=== PATIENT | female | born 1985 | race Caucasian/White ===

== ENCOUNTER → 2021-02-12 09:23 | Outpatient (BNVA) | payer MEDICAID, SELFPAY | PROVIDERS: Visit Provider Obstetrics & Gynecology ==

== ENCOUNTER 2021-05-13 12:42 | Outpatient (REF) | payer MEDICAID, SELFPAY ==
[2021-05-13 14:51] LABS: COVID-19 Test Negative (Negative)
== END 2021-05-13 12:43 | disposition home or self-care (01) ==
LOC: HO.LAB 12:42
PROVIDERS: Visit Provider Internal Medicine
DX: Z20.822 Contact with and (suspected) exposure to COVID-19 (principal)
CPT/HCPCS: 36415; 87635; C9803

== ENCOUNTER 2021-06-25 10:46 | Emergency (ER) | payer MEDICAID, SELFPAY ==
[2021-06-25 10:54] VITALS: BP 132/78; PULSE 79; RESP 20; TEMP 36.7; O2SAT 97; BMI 35.3
--- NOTE | 2021-06-25 11:24 | ED.GENADULT ---
HPI - General Adult General Chief complaint: General Medical Stated complaint: sore throat Time Seen by Provider: 06/25/21 11:24 Source: patient and other (Ángela ANN observer used for kittitian)) Mode of arrival: ambulatory Limitations: language barrier History of Present Illness HPI narrative: 36 yo female pmhx anxiety and athma presents to the ED with anterior neck pain and sore throat X3 days. She states this pain started three days ago and it has been progressively worsening. Before having this neck pain she noted she had a little of a runny nose and post nasal drip. She states she continues to have the runny nose and she states that the post nasal drip has resolved. She has throat discomfort, but not pain she states. She denies fevers, chills, SOB, CP. abdominal pain, MTZ, ear ache, nausea, vomiting. She is not a smoker Onset (ago): day(s) (3) Location: neck (anterior ) Severity: mild Quality: aching Related Data Previous Rx's Medication Instructions Recorded amoxicillin 500 mg capsule 500 mg PO BID 10 Days #20 cap 06/25/21 triamcinolone acetonide 55 mcg 2 spray INTRANASAL DAILY #16.9 ml 06/25/21 nasal spray aerosol (Nasacort) Allergies Allergy/AdvReac Type Severity Reaction Status Date / Time No Known Allergies Allergy Verified 02/12/21 09:34 [No Known Allergies*] Review of Systems Review of Systems: Yes all other systems are reviewed and are negative Constitutional: Constitutional: Reports no additional constitutional complaints, Denies body ache(s), Denies chills, Denies fever(s), Denies headache(s) and Denies weakness Eyes: Eyes: Reports no additional eye complaints and Denies change in vision ENT: Reports system reviewed and no additional complaints, except as documented, Denies dizziness, Denies headache(s), Denies nasal congestion, Denies nasal discharge, Reports neck pain, Reports post nasal drip and Reports sore throat Cardiovascular: Cardiovascular: Reports no additional cardiovascular complaints, Denies chest pain, Denies leg edema, Denies dyspnea and Reports other (anterior neck pain ) Respiratory: Respiratory: Reports no additional respiratory complaints, Denies cough and Denies dyspnea Gastrointestinal: Gastrointestinal: Reports no additional gastrointestinal complaints, Denies abdominal pain, Denies diarrhea, Denies nausea and Denies vomiting Genitourinary: Genitourinary: Reports no additional female genitourinary complaints and Denies urinary incontinence Musculoskeletal: Musculoskeletal: Reports no additional musculoskeletal complaints, Denies back pain, Denies arthralgias, Denies joint swelling, Reports neck pain, Denies numbness and Denies tingling Integumentary/Breasts: Skin/Breast: Reports system reviewed and no additional complaints, except as docu and Denies rash Neurologic: Reports system reviewed and no additional complaints, except as documented, Denies Abnormal speech present, Denies dizziness, Denies headache(s), Denies numbness, Denies tingling and Denies weakness [facility] Past Medical History Attestation statement: The following information was validated with the patient. Source: old records reviewed and nursing notes reviewed Medical History Anxiety Asthma Cholecystectomy planned Colitis Gastritis Panic attack Surgical History History of appendectomy Hx of section Family History Family History Mother Ovarian ca Social History Social History Alcohol intake: never Patient Tobacco Use Status: Never used Tobacco Advance Directives: No Advance Directives Information Provided: Yes Patient : No Physical Exam Vital Signs: Vital Signs: Last Vital Signs Temp 98.1 F 06/25/21 10:54 Pulse 79 06/25/21 10:54 Resp 20 06/25/21 10:54 BP 132/78 06/25/21 10:54 Pulse Ox 97 06/25/21 10:54 Body Mass Index 35.3 Const: General: cooperative, healthy appearing, comfortable and no acute distress Orientation/consciousness: patient oriented x3 Limitations: no limitations HENMT: Head: Yes normal to inspection Ears: hearing grossly normal bilaterally General nose exam: Normal external nose present Face and sinus: Yes normal facial exam Mouth: Normal oral and palatal mucosa present Throat: Yes posterior oropharynx normal Eyes: General: appearance normal, both eyes and all related structures Pupils: Equal, round and reactive pupils present Neck: Neck: Yes normal visual inspection Thyroid: tender and other (?small nodule noted to palpation right upper thyroid lobe. ) Chest: Chest palpation & inspection: normal inspection of the chest Resp: Effort & Inspection: normal respiratory effort Auscultation: clear to auscultation bilaterally Cardio: Rate: regular rate Rhythm: regular rhythm Peripheral pulses: Peripheral pulses 2+ throughout GI: Inspection: Yes normal to inspection Palpation (GI): Soft to palpation and nontender Auscultation: normal bowel sounds Back/Spine/Pelvis: Thoracic/Lumbar Spine: thoracic and lumbar spine normal to inspection Skin: General skin exam: no rashes or lesions noted Neuro: General: patient oriented x3, no focal motor deficits and normal sensation to monofilament Cranial nerves: Yes Equal, round and reactive pupils present Cognition (Neuro): normal cognition Speech: No Abnormal speech present Gait exam (Neuro): Normal gait present Motor exam (neuro): 5/5 motor strength present throughout Extrem: General: Yes normal to inspection Course Course Course Narrative: 36 yo F pmhx asthma and anxiety presents to the emergency department with 3 days of anterior neck pain, postnasal drip, rhinorrhea. Upon physical examination there may be a small solitary nodule on the right upper lobe of the thyroid. She reports pain to palpation over the thyroid. She has full range of motion of the neck. She is controlling her secretions well. There is no exudates, or erythema in bilateral tonsils or tonsillar pillars. Tympanic membrane has a good cone of light, all landmarks are visible. Reevaluation(s) Reevaluation #1: COVID negative, strep positive, will D/C home with amoxicillin and nasacort for allergies. She is safe for DC home with PCP follow up. Medical Decision Making MDM Narrative Medical decision making narrative: Based off of physical exam findings, and history a COVID swab will be ordered as well as a strep test. This may be a small a thyroid nodule that is causing the patient discomfort. No concern for infection at this time, there is no overlying calor, or erythema. Vital signs are normal, she is afebrile. She is controlling secretions well. These may also be seasonal allergies, as the patient reports postnasal drip, that is been worsening over the past 3 days. HEENT patient reports throat discomfort, not pain. Medical Records Medical records reviewed: Yes I reviewed the patient's medical records. Lab Data Lab results reviewed: Yes I reviewed the patient's lab results. Labs: Lab Results 06/25/21 06/25/21 Range/Units 11:37 11:37 COVID-19 (ANAND) Negative (Negative) COVID-19 Clin Com See Note S. pyogenes GrpA TREVOR Positive A (Negative) Discharge Plan Discharge Clinical Impression: PND (post-nasal drip), Anterior neck pain, Strep pharyngitis Patient Disposition: Home, Self-Care Instructions: Strep Throat (ED), Thyroid Nodules (ED), Allergies (ED) Additional Instructions: There may be a small thyroid nodule on the right upper thyroid lobe, follow up with your PCP they may do an ultrasound if they think it is necessary. You tested positive for strep throat a bacterial infection you were prescribed amoxicillin an antibiotic. Make sure to take it completely, do not skip any doses. Drink plenty of fluids Follow up with your PCP this week Return to the emergency department with new or worsening symptoms Puede lisha un nayely?o n?dulo tiroideo en el l?bulo tiroideo superior derecho, marsha un seguimiento con denton PCP, pueden hacer josiah ecograf?a si lo creen necesario. Rene positivo para faringitis estreptoc?cica, josiah infecci?n bacteriana que le recetaron amoxicilina, un antibi?marley. Aseg?rese de tomarlo por completo, no se salte ninguna dosis. Beber mucho l?quido Negativa para COVID-19 Marsha un seguimiento con denton PCP esta semana Regrese al departamento de emergencias con s?ntomas nuevos o que empeoran Prescriptions: New triamcinolone acetonide [Nasacort] 55 mcg aerosol,spray 2 spray intranasal DAILY Qty: 16.9 RF: 0 amoxicillin 500 mg capsule 500 mg PO BID 10 Days Qty: 20 RF: 0 Stand Alone Forms: Work/School Release Interventions: ED Discharge Assessment Last Done: 06/25/21 12:41 Discharge Date/Time: 06/25/21 12:42 Print Language: Sami
[2021-06-25 11:51] LABS: IDNOW Serial# 9DD0AD1C; Strep A Nucleic Acid Positive (Negative)
[2021-06-25 12:04] LABS: COVID-19 Test Negative (Negative)
== END 2021-06-25 12:42 | disposition home or self-care (01) ==
PROVIDERS: Nurse Practitioner Family; Emergency Provider Emergency Medicine Emergency Medical Services
DX: J02.0 Streptococcal pharyngitis (principal); R09.82 Postnasal drip; M54.2 Cervicalgia; J45.909 Unspecified asthma, uncomplicated; Z20.822 Contact with and (suspected) exposure to COVID-19
CPT/HCPCS: 36415; 87635; 87651; 99283

== ENCOUNTER 2021-07-02 13:10 | Outpatient (REF) | payer MEDICAID, SELFPAY ==
--- NOTE | ~2021-07-02 | XR_ITS ---
EXAMINATION: XR LUMBOSACRAL SPINE CLINICAL INFORMATION: Lower back pain. COMPARISON: None. TECHNIQUE: 3 views of the lumbosacral spine. FINDINGS: The lumbar lordosis is maintained. No acute fracture or subluxation. No loss of vertebral body height. Loss of intervertebral disc height with endplate sclerosis and osteophytes at L4-L5. No lytic or blastic osseous lesion. Right upper quadrant surgical clips. XR/XR lumbar spine 2-3V IMPRESSION: Sfszmyob-ct-hqzpbe degenerative disc disease at L4-L5.
== END 2021-07-02 13:11 | disposition home or self-care (01) ==
LOC: HO.XRAY 13:10
PROVIDERS: Absent Provider Nurse Practitioner; PCP Nurse Practitioner; Visit Provider Emergency Medicine
DX: M54.50 Low back pain, unspecified (principal)
CPT/HCPCS: 72100

== ENCOUNTER 2021-09-01 08:01 | Outpatient (REF) | payer MEDICAID, SELFPAY ==
--- NOTE | ~2021-09-01 | US_ITS ---
EXAMINATION: US THYROID CLINICAL INFORMATION: Nontoxic thyroid nodule. COMPARISON: None TECHNIQUE: Linear transducer grayscale and color Doppler examination with attention to the region of the thyroid. FINDINGS: SIZE: Measurements of the thyroid lobes and nodules are given in sagittal, anteroposterior and transverse dimensions respectively. Right Thyroid Lobe: 4.08 x 1.54 x 1.57 cm, volume 5.14 mL. Parenchyma: The gland echotexture is homogeneous. Thyroid vascularity is normal. Left Thyroid Lobe: 5.73 x 1.32 x 1.26 cm, volume 5.01 mL. Parenchyma: The gland echotexture is homogeneous. Thyroid vascularity is normal. Isthmus: 0.37 cm in maximum AP dimension. Estimated total number of nodules greater than or equal to 1 cm: 2. 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 Location: Right inferior. Size: 1.20 x 0.92 x 0.96 cm, volume 0.56 mL. Nodule characteristics: Composition: Mixed cystic and solid (1). Echogenicity: Hypoechoic (2). Shape: Not taller than wide (0). Margins: Smooth (0). Echogenic Foci: None (0). ACR TI-RADS total points: 3 ACR TI-RADS category: 3 2. Location: Left inferior. Size: 1.51 x 0.93 x 0.82 cm, volume 0.61 mL. Nodule characteristics: Composition: Solid (2). Echogenicity: Hypoechoic (2). Shape: Not taller than wide (0). Margins: Smooth (0). Echogenic Foci: None (0). ACR TI-RADS total points: 4 ACR TI-RADS category: 4 NODES: No lymphadenopathy is seen in the tissue surrounding the thyroid gland. US/US thyroid IMPRESSION: Normal-sized thyroid gland which demonstrates bilateral nodules. FNA recommended for 1.5 cm left TR 4 nodule. ACR TI-RADS RECOMMENDATION REFERENCE: Ultrasound-guided fine-needle aspiration, followup ultrasound, no further follow up. * TR3 (3 points): FNA if more than or equal to 2.5 cm in maximum dimension, followup ultrasound in 1, 3 and 5 years if 1.5 to 2.4 cm in maximum dimension. * TR4 (4-6 points): FNA if more than or equal to 1.5 cm in maximum dimension, followup ultrasound in 1, 2, 3 and 5 years if 1 to 1.4 cm in maximum dimension. * TR3, TR4 or TR5 nodules that are below the size threshold for follow up receive no follow up.
== END 2021-09-01 08:02 | disposition home or self-care (01) ==
LOC: HO.US 08:01
PROVIDERS: Visit Provider Nurse Practitioner
DX: E04.1 Nontoxic single thyroid nodule (principal)
CPT/HCPCS: 76536

== ENCOUNTER 2021-10-06 07:58 | Outpatient (REF) | payer MEDICAID, SELFPAY ==
--- NOTE | ~2021-10-06 | US_ITS ---
PROCEDURE: ULTRASOUND-GUIDED LEFT THYROID NODULE BIOPSY CLINICAL INFORMATION: Single thyroid nodule lower pole of the left thyroid gland which is partially exophytic. COMPARISON: 09/01/2021 TECHNIQUE: Ultrasound-guided left thyroid nodule biopsy. FINDINGS: Informed consent was obtained from the patient prior to the procedure. During this process, the procedure and potential alternatives were explained, along with the intended outcome and benefits. The risks of the procedure, as well as the risk of not doing the procedure, were discussed. The patient was given the opportunity to ask questions regarding the procedure and appeared competent to make medical decisions. A signed consent form which documents this discussion was placed in the medical record. Using sterile technique and ultrasound guidance multiple fine-needle aspiration biopsies (8) were obtained with two of the biopsies being performed with 22-gauge needle due to question for sampling with the 25-gauge needle. Patient tolerated procedure without difficulty. US/US guided fine needle asp IMPRESSION: Left thyroid nodule biopsy with ultrasound guidance.
== END 2021-10-06 07:59 | disposition home or self-care (01) ==
LOC: HO.US 07:58
PROVIDERS: Visit Provider Nurse Practitioner
DX: E04.1 Nontoxic single thyroid nodule (principal)
CPT/HCPCS: 10005; 88172; 88173; 88177; 88305

== ENCOUNTER 2021-10-07 11:14 | Outpatient (REF) | payer MEDICAID, SELFPAY ==
--- NOTE | ~2021-10-07 | XR_ITS ---
EXAMINATION: XR CHEST CLINICAL INFORMATION: Anterior chest pain COMPARISON: June 13, 2019 and July 03, 2017 TECHNIQUE: 2 views of the chest were obtained. FINDINGS: No significant abnormality is noted involving the heart, lungs, mediastinum, bony thorax or soft tissues. XR/XR chest 2V IMPRESSION: No acute disease.
== END 2021-10-07 11:15 | disposition home or self-care (01) ==
LOC: HO.XRAY 11:14
PROVIDERS: PCP Nurse Practitioner; Visit Provider Family Medicine
DX: R07.89 Other chest pain (principal)
CPT/HCPCS: 71046

== ENCOUNTER 2021-11-18 10:35 | Outpatient (REF) | payer MEDICAID, SELFPAY ==
[2021-11-18 15:32] LABS: CT PCR NOT DETECTED (Not Detect.); NG PCR NOT DETECTED (Not Detect.)
== END 2021-11-18 10:36 | disposition home or self-care (01) ==
LOC: HO.LAB 10:35
PROVIDERS: PCP Nurse Practitioner; Visit Provider Obstetrics & Gynecology
DX: N93.9 Abnormal uterine and vaginal bleeding, unspecified (principal)
CPT/HCPCS: 87491; 87591; 99212

== ENCOUNTER → 2021-12-03 13:42 | Outpatient (BNVA) | payer MEDICAID, SELFPAY | PROVIDERS: PCP Nurse Practitioner; Visit Provider Obstetrics & Gynecology | DX: N93.9 Abnormal uterine and vaginal bleeding, unspecified (principal) | CPT/HCPCS: 58100; 99212 ==

== ENCOUNTER → 2021-12-29 13:45 | Outpatient (BNVA) | payer MEDICAID, SELFPAY | PROVIDERS: Visit Provider Obstetrics & Gynecology | DX: Z01.818 Encounter for other preprocedural examination (principal); N93.9 Abnormal uterine and vaginal bleeding, unspecified | CPT/HCPCS: 99212 ==

== ENCOUNTER 2021-12-31 09:36 | Day surgery (SDC) | payer MEDICAID, SELFPAY ==
[2021-12-24 15:11] VITALS: BMI 35.0
--- NOTE | 2021-12-30 08:41 | HO.ANESPROP2 ---
Documented by User: Ana Chacon NP 12/30/21 08:41 HPI - Anesthesia Eval Consult details Narrative: 36yo F for D&C Hysteroscopy,poss polypectomy/myomectomy PMFSH Active Problems Active Problems: All Active Problems (Updated 12/24/21 @ 15:06 by Rosalina Nassar RN) Well woman exam (Acute) Abnormal uterine bleeding (AUB) (Acute) Past Medical History Medical History Anxiety Asthma Colitis Endometriosis Gastritis Panic attack Family History Family History Mother Ovarian ca Surgical History Surgical History History of appendectomy History of cholecystectomy Hx of section Hx of cystoscopy Social History Social History Are you a primary childcare provider to a significant other at home: No Do you presently have visiting nurse or other home services: No Alcohol intake: never Patient Tobacco Use Status: Never used Tobacco Use of substances other than those prescribed or required for medical reasons: Yes Substance Use Type Other:: advised to hold pre-op Substance Use Frequency: Occasionally Have you been hit, kicked, punched, or otherwise hurt by someone within the past year? If so, by whom?: No Are you DNR?: No Advance Directives: No Advance Directives Information Provided: Yes (brochure mailed) Advance Directives on File: No Recently lost weight without trying: No Eating poorly because of decreased appetite: No Nutrition Risks: No Nutritional Risk Patient : No FDLMP: 12/17/21 : No Poor oral hygiene: No Meds Allergies Allergy/AdvReac Type Severity Reaction Status Date / Time No Known Allergies Allergy Verified 12/03/21 13:56 [No Known Allergies*] Home Medications Medication Instructions Recorded Confirmed Last Taken Type fluticasone propionate 110 2 puff PO BID 11/18/21 12/24/21 Unknown History mcg/actuation HFA aerosol inhaler (Flovent HFA) ibuprofen 600 mg tablet 600 mg PO TID PRN 11/18/21 12/24/21 Unknown History albuterol sulfate 90 mcg/actuation 2 puff PO Q4-6H PRN 12/24/21 12/24/21 Unknown History aerosol inhaler (ProAir HFA) norethindrone (contraceptive) 0.35 0.35 mg PO DAILY 12/29/21 Unknown History mg tablet Exam Exam Date and Time: December 30, 2021 0841 Height,Weight and Vital Signs: Height 5 ft 3 in Weight 89.811 kg Assessment and Plan Assessment Anesthesia Assessment: Chart Reviewed Documented by User: Merline Ricketts MD 12/31/21 10:02 PMF Past Medical History Medical History Anxiety Asthma Colitis Endometriosis Gastritis Panic attack Family History Family History Mother Ovarian ca Family history of problems with anesthesia: No Surgical History Surgical History History of appendectomy History of cholecystectomy Hx of section Hx of cystoscopy History of Problems with Anesthesia: No Social History Social History Are you a primary childcare provider to a significant other at home: No Do you presently have visiting nurse or other home services: No Alcohol intake: never Patient Tobacco Use Status: Never used Tobacco Use of substances other than those prescribed or required for medical reasons: Yes Substance Use Type Other:: advised to hold pre-op Substance Use Frequency: Occasionally Have you been hit, kicked, punched, or otherwise hurt by someone within the past year? If so, by whom?: No Are you DNR?: No Advance Directives: No Advance Directives Information Provided: Yes (brochure mailed) Advance Directives on File: No Recently lost weight without trying: No Eating poorly because of decreased appetite: No Nutrition Risks: No Nutritional Risk Patient : No FDLMP: 12/17/21 : No Poor oral hygiene: No Meds Allergies Allergy/AdvReac Type Severity Reaction Status Date / Time No Known Allergies Allergy Verified 12/03/21 13:56 [No Known Allergies*] Home Medications Medication Instructions Recorded Confirmed Last Taken Type fluticasone propionate 110 2 puff PO BID 11/18/21 12/24/21 Unknown History mcg/actuation HFA aerosol inhaler (Flovent HFA) ibuprofen 600 mg tablet 600 mg PO TID PRN 11/18/21 12/24/21 Unknown History albuterol sulfate 90 mcg/actuation 2 puff PO Q4-6H PRN 12/24/21 12/24/21 Unknown History aerosol inhaler (ProAir HFA) norethindrone (contraceptive) 0.35 0.35 mg PO DAILY 12/29/21 Unknown History mg tablet Exam Airway Mallampati Class: II TM Dist: >3cm Neck ROM: Full Heart: rrr Lungs: cta Assessment and Plan Assessment Anesthesia Assessment: Anesthesia Plan Discussed and Chart Reviewed Final Anesthetic Review Family History of Problems with Anesthesia: No History of Problems with Anesthesia: No NPO: Yes ASA Class: II Final Preanesthetic Review: No Changes in Pt Med Stat, Meds/Allgs Chart Reviewed and Consent Obtained/Reviewed Patient Risk: Intermediate Procedure Risk: Intermediate Anesthetic Plan Anesthetic Plan: GA Disposition: Standard PACU
[2021-12-31 09:41] VITALS: BP 128/73; PULSE 69; RESP 18; TEMP 36.1; O2SAT 97
[2021-12-31 09:56] LABS: UPreg QC Valid YES; Urine Pregnancy NEGATIVE (NEGATIVE)
[2021-12-31] MEDS: Lactated Ringers 1,000 ML 100 ML IVCONT (10:01)
--- NOTE | 2021-12-31 10:34 | MHC.SHP ---
Pre-Procedural Eval Section A Date of Service: 12/31/21 The patient is an INPATIENT: No Changes since office visit: No Cold of Flu in the past 2 weeks, No New Medical Problems, No Changes in Medication and No Patient answered all questions The History & Physical has been completed within 30 days and I have reviewed it.: Yes Section B Chief Complaint: Abnormal uterine and vaginal bleeding, Allergies: Allergies Allergy/AdvReac Type Severity Reaction Status Date / Time No Known Allergies Allergy Verified 12/03/21 13:56 [No Known Allergies*] Plan Diagnosis/Plan: Unchanged I have reviewed the history and physical and performed a pertinent physical examination on my patient. No changes have occurred unless specified.
[2021-12-31 11:07] VITALS: BP 146/62; PULSE 108; RESP 16; TEMP 36; O2SAT 98
--- NOTE | 2021-12-31 11:09 | P.BOP_ITS ---
Brief Operative Note Date of Service: 12/31/21 Pre-op diagnosis: Abnormal uterine bleeding Post-op diagnosis: same Procedure: Hysteroscopy D&C Surgeon: Martin Jang MD Anesthesia: MAC Was an Head Neck Surgeon used for this Procedure?: No Estimated blood loss (mL): 0 Pathology: other (Endometrial Scrapping.) Condition: stable Disposition: PACU
--- NOTE | 2021-12-31 11:10 | P.OP_ITS ---
Operative Note Operative Note Date of Service: 12/31/21 Narrative: Preop Diagnosis: Abnormal uterine bleeding Operation: Diagnostic Hysteroscopy, Dilataion & Curettage Post Op Diagnosis: Normal endometrial cavity QBL: Minimal Anesthesia: MAC Surgeon: Martin Jang MD Gasket Supervisor: None Complication: None Pathology: Endometrial Scrapings Procedure: The patient was put in the dorsal lithotomy position, scrubbed, and draped in the usual manner. A sterile speculum was inserted in the patient's vagina. The anterior lip of the cervix was grasped with a single tooth tenaculum. The cervix was dilated up to 5 mm, then the diagnostic scope was inserted in the patient's uterus. Inspection revealed endometrial polyp. Sharp curettings was carried on retrieved moderate amount of tissues. At the end of the procedure, all instruments were taken out of the patient uterine and vaginal cavity. The single tooth tenaculum was removed and homeostasis was assured using pressure,. The patient tolerated the procedure well and was transferred to the PACU in a stable condition.
[2021-12-31 11:12] VITALS: BP 158/80; PULSE 60; RESP 16; O2SAT 98
[2021-12-31 11:17] VITALS: BP 144/84; PULSE 58; RESP 16; O2SAT 98
[2021-12-31 11:22] VITALS: BP 134/90; PULSE 55; RESP 16; O2SAT 98
[2021-12-31] MEDS: Acetaminophen 325 MG TABLET 650 MG PO (11:32)
[2021-12-31 11:36] VITALS: PULSE 53; RESP 16; TEMP 36.1; O2SAT 98
== END 2021-12-31 12:09 | disposition home or self-care (01) ==
PROVIDERS: PCP Nurse Practitioner; Visit Provider Obstetrics & Gynecology
PROC: 0UDB8ZZ Extraction of Endometrium, Via Natural or Artificial Opening Endoscopic (ICD-10-PCS; CPT 58558; principal; 2021-12-31 11:40)
DX: N93.9 Abnormal uterine and vaginal bleeding, unspecified (principal); N80.9 Endometriosis, unspecified; J45.909 Unspecified asthma, uncomplicated; K29.50 Unspecified chronic gastritis without bleeding; F41.1 Generalized anxiety disorder; F41.0 Panic disorder [episodic paroxysmal anxiety]; Z79.51 Long term (current) use of inhaled steroids; Z79.899 Other long term (current) drug therapy; Z90.49 Acquired absence of other specified parts of digestive tract
CPT/HCPCS: 58558; 81025; 88305; J1100; J1885; J2250; J2405; J3010

== ENCOUNTER 2022-01-13 12:12 | Outpatient (REF) | payer MEDICAID, SELFPAY ==
[2022-01-13 13:13] LABS: Hematocrit 37.6 % (37.0-47.0); Hemoglobin 11.8 g/dl (12.0-16.0); Mean Corpuscular HGB Conc 31.4 g/dl (31.0-35.0); Mean Corpuscular Hemoglobin 29.2 pg (27.0-33.0); Mean Corpuscular Volume 93.1 fL (80.0-98.0); Mean Platelet Volume 9.6 fL (9.4-12.3); Platelet Count 405 X10*3/uL (160-400); Red Blood Count 4.04 X10*6/uL (4.20-5.50); Red Cell Distribution Width 14.1 % (11.0-16.0); White Blood Count 8.3 X10*3/uL (4.8-10.8)
[2022-01-13 14:17] LABS: HCG Quantitative < 2 mIU/mL; TSH reflex Free T4 1.03 uIU/mL (0.32-4.0)
== END 2022-01-13 12:13 | disposition home or self-care (01) ==
LOC: HO.LAB 12:12
PROVIDERS: PCP Nurse Practitioner; Visit Provider Obstetrics & Gynecology
DX: N93.9 Abnormal uterine and vaginal bleeding, unspecified (principal)
CPT/HCPCS: 36415; 84443; 84702; 85027; 99212

== ENCOUNTER 2022-06-07 08:03 | Outpatient (REF) | payer MEDICAID, SELFPAY ==
--- NOTE | ~2022-06-07 | MR_ITS ---
EXAMINATION: MR LUMBAR SPINE WITHOUT CONTRAST CLINICAL INFORMATION: Lumbago, right-sided sciatica. COMPARISON: None TECHNIQUE: MRI of the lumbar spine was obtained using routine sequences without contrast. FINDINGS: VERTEBRAL BODIES AND PARASPINAL STRUCTURES: There are 5 nonrib-bearing lumbar-type vertebral bodies. Vertebral body heights, and sagittal alignment are maintained. No evidence of acute fracture. There is xzmm-uw-nuulzrua disc degeneration at L4-L5, with Modic II endplate signal. Mild disc degeneration at L5-S1, with Modic type II endplate signal. The aorta is normal in caliber. No adenopathy. Paraspinal muscle bulk is symmetric. CONUS MEDULLARIS AND CAUDA EQUINA: The conus terminates normally at L1. There is normal signal within the conus medullaris, cauda equina, and along the expected course of the filum terminale. SPINAL LEVELS: T12-L1: Normal disc morphology without central or foraminal stenosis. L1-L2: Normal disc morphology. The central canal and foramen are maintained. L2-L3: Normal disc morphology. The central canal and foramen are maintained. Mild facet hypertrophy. L3-L4: Normal disc morphology. Central canal and foramen are patent. L4-L5: Ruaj-hm-nfjuatjb disc degeneration. There is a broad-based posterior disc protrusion. Bilateral facet hypertrophy, ligamentum flavum hypertrophy. Findings result in mild central canal narrowing. Orpwxrwt-jx-sikaqg bilateral neural foraminal narrowing. L5-S1: Mild disc degeneration. There is a mild broad-based posterior disc bulge. Bilateral facet hypertrophy. Ligamentum flavum hypertrophy. Jodk-np-ikxdojsw bilateral neural foraminal narrowing. No significant central canal stenosis. MR/MR lumbar spine wo con IMPRESSION: L4-L5: Broad-based posterior disc protrusion. Bilateral facet hypertrophy and ligamentum flavum hypertrophy, contribute to mild central canal narrowing. Tbdaerbj-lp-mwwopg bilateral neural foraminal narrowing. At L5-S1, mild broad-based posterior disc bulge with myer-zl-otzbiyyz bilateral neural foraminal narrowing. Additional findings and details as above.
== END 2022-06-07 08:04 | disposition home or self-care (01) ==
LOC: HO.MRI 08:03
PROVIDERS: Visit Provider Emergency Medicine
DX: M51.36 Other intervertebral disc degeneration, lumbar region (principal); M54.41 Lumbago with sciatica, right side
CPT/HCPCS: 72148

== ENCOUNTER 2022-09-01 13:40 | Outpatient (REF) | payer MEDICAID, SELFPAY ==
--- NOTE | ~2022-09-01 | US_ITS ---
EXAMINATION: US PELVIS COMPLETE CLINICAL INFORMATION: Abnormal uterine bleeding COMPARISON: Pelvic ultrasound 09/04/2018 TECHNIQUE: Transabdominal and transvaginal imaging was performed. FINDINGS: The uterus is of normal size and echogenicity measuring 9.4 x 4.2 x 4.1 cm. A regular homogeneous endometrium is identified measuring 0.8 cm. Uterus is neutral in position. Both ovaries are of normal appearance and echogenicity. The right measures 3.3 x 3.0 x 3.3 cm. The left measures 4.3 x 2.2 x 5.0 cm. There is no pelvic free fluid. US/US pelvic and transvaginal IMPRESSION: Unremarkable pelvic ultrasound.
== END 2022-09-01 13:41 | disposition home or self-care (01) ==
LOC: HO.HMGCX 13:40
PROVIDERS: Visit Provider Obstetrics & Gynecology
DX: N93.9 Abnormal uterine and vaginal bleeding, unspecified (principal)
CPT/HCPCS: 76830; 76856

== ENCOUNTER → 2022-09-21 08:28 | Outpatient (BNVA) | payer MEDICAID, SELFPAY | PROVIDERS: PCP Nurse Practitioner; Visit Provider Obstetrics & Gynecology | DX: N93.9 Abnormal uterine and vaginal bleeding, unspecified (principal) | CPT/HCPCS: 99212 ==

== ENCOUNTER 2023-07-23 07:07 | Emergency (ER) | payer MEDICAID, SELFPAY ==
--- NOTE | ~2023-07-23 | XR_ITS ---
EXAMINATION: XR CHEST CLINICAL INFORMATION: Cough COMPARISON: Previous chest x-ray September 2021 TECHNIQUE: 2 views of the chest were obtained. FINDINGS: No significant abnormality is noted involving the heart, lungs, mediastinum, bony thorax or soft tissues. XR/XR chest 2V IMPRESSION: Unremarkable examination.
[2023-07-23 07:19] VITALS: BP 148/98; PULSE 79; RESP 18; TEMP 36.8; O2SAT 97; BMI 33.8
--- NOTE | 2023-07-23 07:22 | ED_ITS ---
HPI - SOB/Dyspnea General Chief Complaint: Dyspnea Stated Complaint: Diff breathing/Cough Time Seen by Provider: 07/23/23 07:11 Source: patient Mode of arrival: ambulatory Limitations: no limitations History of Present Illness HPI Narrative: This is a 38 years old female presented to the emergency department complaining of cough or shortness of breath. The symptoms have been ongoing for a couple of days worse this morning. Patient denies any past medical history she is a smoker. MD elicited complaint: shortness of breath and cough Onset (ago): day(s) (2) Timing: constant Severity: moderate Exacerbating factors: nothing Relieving factors: nothing Associated symptoms: denies other symptoms Related Data Home Medications Medication Instructions Recorded Confirmed fluticasone propionate 110 2 puff PO BID 11/18/21 12/24/21 mcg/actuation HFA aerosol inhaler (Flovent HFA) ibuprofen 600 mg tablet 600 mg PO TID PRN pain 11/18/21 12/24/21 albuterol sulfate 90 mcg/actuation 2 puff PO Q4-6H PRN Wheezing 12/24/21 12/24/21 aerosol inhaler (ProAir HFA) Previous Rx's Medication Instructions Recorded L norgest/E estradiol-E estrad 1 tab PO DAILY 84 days #84 ea 04/04/23 0.15 mg-30 mcg (84)/10 mcg(7) tabs,3mos (Seasonique) albuterol sulfate 90 mcg/actuation 2 puff inhalation Q6H PRN 07/23/23 aerosol inhaler bronchospasm #8.5 grams prednisone 20 mg tablet 60 mg (3 x 20 mg) PO DAILY #12 tabs 07/23/23 Allergies Allergy/AdvReac Type Severity Reaction Status Date / Time No Known Allergies Allergy Verified 07/23/23 07:26 [No Known Allergies*] Review of Systems Constitutional: Constitutional: Reports no additional constitutional complaints ENT: Reports system reviewed and no additional complaints, except as documented Cardiovascular: Cardiovascular: Reports dyspnea Respiratory: Respiratory: Reports as per HPI, Reports cough and Reports dyspnea Psychiatric: Psychiatric: Reports no additional psychiatric complaints Allergic/Immunologic: Allergic/Immunologic: Reports no additional allergic/immunologic complaints PMFSH Past Medical History Medical History Endometriosis Colitis Gastritis Asthma Panic attack Anxiety Surgical History Hx of cystoscopy History of cholecystectomy History of appendectomy Hx of section Family History Family History Mother Ovarian ca Social History Social History Are you a primary managed care coordinator to a significant other at home: No Do you presently have visiting nurse or other home services: No Alcohol intake: never Patient Tobacco Use Status: Never used Tobacco Smoked in Last 30 Days: Yes Advance Directives: No Physical Exam Vital Signs: Vital Signs: Last Vital Signs Temp 98.2 F 07/23/23 07:19 Pulse 75 07/23/23 07:44 Resp 18 07/23/23 07:44 BP 148/98 H 07/23/23 07:19 Pulse Ox 97 07/23/23 07:19 O2 Del Method Room Air 07/23/23 07:19 BMI result Body Mass Index 33.8 Const: General: cooperative Nutritional Appearance: well nourished Orientation/consciousness: patient oriented x3 Limitations: no limitations HEENT: Head: Yes normal to inspection General nose exam: Normal external nose present Face and sinus: Yes normal facial exam Mouth: Normal oral and palatal mucosa present Throat: Yes posterior oropharynx normal Neck: Neck: Yes normal visual inspection Chest: Chest palpation & inspection: normal inspection of the chest Resp: Effort & Inspection: normal respiratory effort Auscultation: wheezes Cardio: Jugular venous distension: no JVD Rate: regular rate Rhythm: regular rhythm GI: Inspection: Yes normal to inspection Palpation (GI): Soft to palpation, not firm, nontender and no guarding Percussion: Yes normal to percussion Auscultation: normal bowel sounds : General: Yes no CVA tenderness Back/Spine/Pelvis: Back: no CVA tenderness Skin: General skin exam: no rashes or lesions noted Neuro: General: patient oriented x3 Extrem: General: Yes normal to inspection Right upper extremity: normal to inspection Left upper extremity: normal to inspection Course Reevaluation(s) Reevaluation #1: doing much better lungs clear after neb Time: 08:34 Medications Administered Discontinued Medications Generic Name Dose Route Start Last Admin Trade Name Freq PRN Reason Stop Dose Admin Albuterol Sulfate 5 mg/ 7.5 mg 07/23/23 07:39 07/23/23 07:44 Albuterol Sulfate 2.5 mg INHALE 07/23/23 07:40 7.5 mg ONCE ONE Administration Prednisone 60 mg 07/23/23 07:49 07/23/23 08:24 Prednisone 20 Mg Tablet PO 07/23/23 07:50 60 mg ONCE ONE Administration Medical Decision Making Medical Decision Making [facility] Narrative: Patient presented with cough and shortness of breath on physical exam patient has wheezing will provide bronchodilator/prednisone and reassess @8:35 AM much better lungs clear after nebs Differential Diagnosis Differential Diagnoses: The differential diagnosis associated with the presentation includes Asthmatic bronchitis/bronchitis she/asthma/pneumonia. Admission/Observation Consideration of admission/observation: Escalation of care including admission/observation considered Lab Data [facility] Lab Attestation statement: I reviewed the patient's lab results. Labs: Lab Results 07/23/23 Range/Units 07:50 Influenza Type A (PCR) NEGATIVE (Negative) Influenza Type B (PCR) NEGATIVE (Negative) RSV RNA Qual (PCR) NEGATIVE (Negative) SARS-CoV-2 RNA (RT-PCR) NEGATIVE (Negative) Independent Interpretation I performed an independent interpretation of an: Plain X-Ray Interpretation: normal cxr reviewed by me Radiology Impression Discussion of test interpretation with radiology: I have reviewed the radiologist's reading. Radiologist Impression: known ~ EXAMINATION: XR CHEST CLINICAL INFORMATION: Cough COMPARISON: Previous chest x-ray September 2021 TECHNIQUE: 2 views of the chest were obtained. FINDINGS: No significant abnormality is noted involving the heart, lungs, mediastinum, bony thorax or soft tissues. XR/XR chest 2V IMPRESSION: Unremarkable examination. Independent Historian Clinical information obtained from an independent historian. History obtained from or confirmed by: Other (Significative other) External Record Review External record reviewed: Inpatient record Discharge Plan Discharge Clinical Impression: Wheezing Patient Disposition: Home, Self-Care Instructions: Wheezing (ED) Prescriptions: New albuterol sulfate 90 mcg/actuation HFA aerosol inhaler 2 puff inhalation Q6H PRN (Reason: bronchospasm) Qty: 8.5 0RF prednisone 20 mg tablet 60 mg PO DAILY Qty: 12 0RF No Action L norgest/e.estradiol-e.estrad [Seasonique] 0.15 mg-30 mcg (84)/10 mcg (7) tablets,dose pack,3 month 1 tab PO DAILY 84 Days Qty: 84 0RF albuterol sulfate [ProAir HFA] 90 mcg/actuation HFA aerosol inhaler 2 puff PO Q4-6H PRN (Reason: Wheezing) ibuprofen 600 mg tablet 600 mg PO TID PRN (Reason: pain) Flovent HFA 110 mcg/actuation HFA aerosol inhaler 2 puff PO BID Referrals: Physician,Unknown J [Primary Care Provider] - 2 days
[2023-07-23 07:44] VITALS: PULSE 75; RESP 18; O2SAT 97
[2023-07-23] MEDS: Albuterol Sulfate 5 MG, Albuterol Sulfate (0.083%) 2.5 MG 7.5 MG INHALE (07:44)
--- NOTE | 2023-07-23 08:08 | PC.NURSE ---
pt c/o of sob, cough, 6/10 pain with inhalation, started few days ago worse this morning. hx of asthma, current smoker. did not refill asthma pump. wheezes ascultated.
[2023-07-23] MEDS: predniSONE 20 MG TABLET 60 MG PO (08:24)
[2023-07-23 08:38] LABS: Influenza A PCR NEGATIVE (Negative); Influenza B PCR NEGATIVE (Negative); Resp Syncy Virus RNA Qual PCR NEGATIVE (Negative); SARS COV2 PCR INHOUSE NEGATIVE (Negative)
== END 2023-07-23 09:50 | disposition home or self-care (01) ==
PROVIDERS: Emergency Provider Emergency Medicine
DX: R06.2 Wheezing (principal); R05.9 Cough, unspecified; R06.02 Shortness of breath; Z20.822 Contact with and (suspected) exposure to COVID-19; Z20.828 Contact with and (suspected) exposure to other viral communicable diseases
CPT/HCPCS: 0241U; 71046; 94640; 99284

== ENCOUNTER 2023-09-21 10:00 | Outpatient (REF) | payer MEDICAID, SELFPAY | END 2023-09-21 10:01 | disposition home or self-care (01) | LOC: HO.HHCL 10:00 | PROVIDERS: Visit Provider General Practice | DX: Z00.00 Encounter for general adult medical examination without abnormal findings (principal); Z11.4 Encounter for screening for human immunodeficiency virus [HIV] | CPT/HCPCS: 36415; 80053; 80061; 83036; 86780; 86803; 87389 ==

== ENCOUNTER 2023-10-20 18:02 | Outpatient (REF) | payer MEDICAID, SELFPAY ==
[2023-10-23 20:48] LABS: C. trachomatis RNA TMA NOT DETECTED (NOT DETECTED); Candida glabrata RNA NOT DETECTED (NOT DETECTED); Candida species RNA NOT DETECTED (NOT DETECTED); N. gonorrhoeae RNA TMA NOT DETECTED (NOT DETECTED); Trichomonas vaginalis RNA NOT DETECTED (NOT DETECTED)
[2023-10-26 04:23] LABS: HPV mRNA E6/E7 rflx Not Detected (Not Detected)
== END 2023-10-20 18:03 | disposition home or self-care (01) ==
LOC: HO.HHCLNP 18:02
PROVIDERS: Visit Provider General Practice
DX: Z12.4 Encounter for screening for malignant neoplasm of cervix (principal)
CPT/HCPCS: 36415; 81513; 87481; 87491; 87591; 87624; 87661; 88142

== ENCOUNTER 2023-10-27 10:47 | Outpatient (REF) | payer MEDICAID, SELFPAY ==
--- NOTE | ~2023-10-27 | US_ITS ---
EXAMINATION: US PELVIS COMPLETE CLINICAL INFORMATION: Endometriosis COMPARISON: Pelvic ultrasound 09/01/2022 TECHNIQUE: Transabdominal and transvaginal imaging was performed. FINDINGS: The uterus is of normal size and echogenicity measuring 10.4 x 3.5 x 4.4 cm. A regular homogeneous endometrium is identified measuring 0.8 cm. Both ovaries are of normal size and echogenicity. The right measures 1.9 x 1.0 x 1.5 cm for a volume of 1.5 mL. The left measures 2.4 x 1.8 x 1.4 cm for a volume of 8.2 mL. There is no pelvic free fluid. US/US pelvic and transvaginal IMPRESSION: Unremarkable pelvic ultrasound.
== END 2023-10-27 10:48 | disposition home or self-care (01) ==
LOC: HO.US 10:47
PROVIDERS: Visit Provider General Practice
DX: N80.9 Endometriosis, unspecified (principal)
CPT/HCPCS: 76830; 76856

== ENCOUNTER 2024-02-21 10:17 | Outpatient (REF) | payer MEDICAID, SELFPAY ==
[2024-02-21 12:48] LABS: HCG Quantitative < 2 mIU/mL; TSH reflex Free T4 2.22 uIU/mL (0.32-4.0)
[2024-02-24 06:53] LABS: Follicle Stimulating Hormone 18.4 mIU/mL
[2024-02-27 02:49] LABS: Estradiol Ultra Sensitive 119 pg/mL
== END 2024-02-21 10:18 | disposition home or self-care (01) ==
LOC: HO.HHCL 10:17
PROVIDERS: Visit Provider Emergency Medicine
DX: N91.1 Secondary amenorrhea (principal)
CPT/HCPCS: 36415; 82670; 83001; 84443; 84702

== ENCOUNTER 2024-03-01 07:55 | Outpatient (REF) | payer MEDICAID, SELFPAY ==
--- NOTE | ~2024-03-01 | US_ITS ---
EXAMINATION: US ABDOMEN COMPLETE CLINICAL INFORMATION: Upper quadrant pain. Cholecystectomy. COMPARISON: CT abdomen and pelvis 01/11/2019. TECHNIQUE: Real-time imaging of the abdominal viscera. Limited visualization due to bowel gas. FINDINGS: PANCREAS: Limited visualization of pancreatic tail and head. Imaged portion of pancreatic body is unremarkable. ABDOMINAL AORTA: Limited visualization. Imaged portions of the abdominal aorta are unremarkable. INFERIOR VENA CAVA: Visualized portions are normal. LIVER: Mildly increased hepatic parenchymal heterogeneity and echogenicity could be associated with hepatocellular disease/hepatic steatosis and substantially limits visualization. Correlation with liver function tests and clinical exam recommended to determine further management. GALLBLADDER: Surgically absent. COMMON BILE DUCT: Normal in caliber measuring 0.34 cm in diameter. RIGHT KIDNEY: No hydronephrosis. No renal calculi. Limited visualization. The kidney measures 11.7 cm in maximum dimension. LEFT KIDNEY: No hydronephrosis. No renal calculi. Limited visualization. The kidney measures 10.4 cm in maximum dimension. SPLEEN: Normal. The spleen measures 8.1 cm in maximum dimension. FREE FLUID: None. US/US abdomen complete IMPRESSION: 1. Mildly increased hepatic parenchymal heterogeneity and echogenicity could be associated with hepatocellular disease/hepatic steatosis and substantially limits visualization. Correlation with liver function tests and clinical exam recommended to determine further management. 2. Gallbladder surgically absent.
== END 2024-03-01 07:56 | disposition home or self-care (01) ==
LOC: HO.US 07:55
PROVIDERS: PCP General Practice; Visit Provider Emergency Medicine
DX: R10.11 Right upper quadrant pain (principal); G89.29 Other chronic pain; Z90.49 Acquired absence of other specified parts of digestive tract
CPT/HCPCS: 76700

== ENCOUNTER 2024-06-19 20:31 | Emergency (ER) | payer OTHER, MEDICAID, SELFPAY ==
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
[2024-06-19 20:35] VITALS: BP 149/97; PULSE 86; RESP 18; TEMP 36.4; O2SAT 99; BMI 33.8
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
--- NOTE | 2024-06-19 22:46 | PC.NURSE ---
PT reports 0 out of 10 pain at this moment stated she took Tylenol earlier to help with the pain.
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
[2024-06-20 00:08] VITALS: BP 136/84; PULSE 84; RESP 16; TEMP 36.4; O2SAT 99
== END 2024-06-20 00:09 | disposition home or self-care (01) ==
PROVIDERS: Emergency Provider Internal Medicine; PCP General Practice
DX: S09.90XA Unspecified injury of head, initial encounter (principal); S02.42XA Fracture of alveolus of maxilla, initial encounter for closed fracture; Y04.2XXA Assault by strike against or bumped into by another person, initial encounter; Y93.89 Activity, other specified; Y92.512 Supermarket, store or market as the place of occurrence of the external cause; Y99.0 Civilian activity done for income or pay
CPT/HCPCS: 70450; 70486; 72125; 99284

== ENCOUNTER 2025-02-07 13:12 | Outpatient (REF) | payer OTHER, MEDICAID, SELFPAY ==
--- OUTSIDE RECORDS SUMMARY | 2025-02-07 13:16 | XMS_ITS | Encounter Summary ---
Author Organization [employer] Address [address] [place] [address] Care Team Providers Care Claims Administrator Name Role Phone Mera Pacheco MD Primary Care Provider Reason for Visit * Reason Comments Earache Encounter Details Date Type Department Care Team (Late st Contact Info) Description 02/07/2025 1:00 PM EDT Office Visit [facility] [address], [place] [id number] Non-recurrent acute serous otitis media of both ears (Primary Dx); Mild intermittent asthma with acute exacerbation; Dietary counseling; Exercise counseling; Class 2 obesity without serious comorbidity with body mass index (BMI) of 37.0 to 37.9 in adult, unspecified obesity type; LAD (lymphadenopathy), anterior cervical; Anxiety; Other insomnia Social History Tobacco Use Types Packs/Day Years Used Date Smoking Tobacco: Former Cigarettes Passive Smoke Exposure: Never Smokeless Tobacco: Never Alcohol Use Standard Drinks/Week Comments Yes 0 (1 standard drink = 0.6 oz pur e alcohol) oca Depression Answer Date Recorded Patient Health Questionnaire-9 Score 9 02/07/2025 Patient Health Questionnaire-9 Score 9 02/07/2025 Last PHQ-9: Questionnaire Data Not on file 0 02/07/2025 Housing Stability Answer Date Recorded What is your housing situation today? I have shaina cota 07/10/[address] you li ve. Do you have problems with any of the following? None of the above 07/10/2023 Food Insecurity Answer Date Recorded Within the past 12 months, y ou worried that your food would run out before you got money to buy more: Never True 07/10/2023 Within the past 12 months,th e food you bought just didn't last and you didn't have enough money to get more: Never True Transportation Answer Date Recorded In the past 12 months, has l ack of transportation kept you from medical appts, meetings, work or from getting things needed for daily living? Yes, it has kept me from medical appointments or getting medications. 09/20/2023 Utilities Answer Date Recorded In the past 12 months, has t he electric, gas, oil or water company threatened to shut off services in your home? No 07/10/2023 Depression Answer Date Recorded Patient Health Questionnaire-2 Score 2 02/07/2025 Comments Unknown Sex and Gender Information Value Date Recorded Sex Assigned at Female 07/18/2022 10:33 AM EDT Legal Sex Female 10:33 AM EDT Gender Identity Female 07/18/2022 10:33 AM EDT Sexual Orientation Straight 07/18/2022 10 :33 AM EDT documented as of this encounter Last Filed Vital Signs Vital Sign Reading Time Taken Comments Blood Pressure 143/94 02/07/2025 12:54 PM EDT Pulse 68 02/07/2025 12:54 PM EDT Temperature 36.6 ??C (97.9 ??F) 02/07/2025 12:54 PM E DT Respiratory Rate 17 02/07/2025 12:54 PM EDT Oxygen Saturation 100% 02/07/2025 12:54 PM EDT Inhaled Oxygen Concentration - - Weight 96.3 kg (212 lb 3.2 oz) 02/07/2025 12:54 PM EDT Height - - Body Mass Index 37.59 06/25/2024 5:51 PM EDT documented in this encounter Functional Status * Over the past 2 weeks, how often have you been bothered by any of the following problems? Question Answer Date of Assessment Author Patient Health Questionnaire -2 Score 2 02/07/2025 1:11 PM EDT Willie Rowe MA * Little interest or pleasure in doing things Answer Date of Assessment Author Several days 02/07/2025 1:11 PM EDT Tony Rowe MA * Feeling down, depressed, or hopeless Answer Date of Assessment Author Several days 02/07/2025 1:11 PM Tony Monzon MA * Trouble falling or staying asleep, or sleeping too much Answer Date of Assessment Author More than half the days 02/07/2025 1:11 PM Willie Schreiber MA * Feeling tired or having little energy Answer Date of Assessment Author Several days 02/07/2025 1:11 PM Tony Monzon MA * Poor appetite or overeating Answer Date of Assessment Author Not at all 02/07/2025 1:11 PM Tony Monzon MA * Feeling bad about yourself - or that you are a failure or have let yourself or your family down Answer Date of Assessment Author More than half the days 02/07/2025 1:11 PM Willie Schreiber MA * Trouble concentrating on things, such as reading the newspaper or watching television Answer Date of Assessment Author More than half the days 02/07/2025 1:11 PM Willie Schreiber MA * Moving or speaking so slowly that other people could have noticed? Or the opposite - being so fidgety or restless that you have been moving around a lot more than usual. Answer Date of Assessment Author Not at all 02/07/2025 1:11 PM Tony Monzon MA * Thoughts that you would be better off or hurting yourself in some way Answer Date of Assessment Author Not at all 02/07/2025 1:11 PM Tony Monzon MA * Patient Health Questionnaire-9 Score Answer Date of Assessment Author 9 02/07/2025 1:11 PM Tony Monzon MA * How difficult have these problems made it for you to do your work, take care of things at home, or get along with other people? Answer Date of Assessment Author Somewhat difficult 02/07/2025 1:11 PM Willie Monzon MA documented as of this encounter Plan of Treatment Scheduled Orders Name Type Priority Associated Diagnoses Orde r Schedule CBC auto differential Lab Routine LAD (lymphadenopathy), anterior cervical Expected: 02/07/2025 (Approximate), Expires: 02/07/2026 Lipid Panel, Standard Lab Routine LAD (lymphadenopathy), anterior cervical Expected: 02/07/2025 (Approximate), Expires: 02/07/2026 TSH W/Reflex to FT4 Lab Routine LAD (lymphadenopathy), anterior cervical Expected: 02/07/2025 (Approximate), Expires: 02/07/2026 T-SPOT??.TB Lab Routine LAD (lymphadenopathy), anterior cervical Expected: 02/07/2025 (Approximate), Expires: 02/07/2026 Sed Rate by Modified [facility] Lab Routine LAD (lymphadenopathy), anterior cervical Expected: 02/07/2025, Expires: 02/07/2026 documented as of this encounter Visit Diagnoses Diagnosis Non-recurrent acute serous otitis media of both ears- Primary Mild intermittent asthma with acute exacerbation Dietary counseling Dietary surveillance and counseling Exercise counseling Class 2 obesity without serious comorbidity with body mass index (BMI) of 37.0 to 37.9 in adult, unspecified obesity type LAD (lymphadenopathy), anterior cervical Anxiety Anxiety state, unspecified Other insomnia documented in this encounter Additional Health Concerns Assessment Noted Time PHQ-9 Depression Total Score: 9 02/08/20 25 1:11 PM EDT documented as of this encounter Care Teams Claims Administrator Relationship Specialty Start Date End Date Mera Pacheco MD [address] [place] [address] PCP - General Family Medicine 05/30/23 documented as of this encounter
[2025-02-07 16:31] LABS: MANUAL DIFF FLAG NO
[2025-02-07 16:39] LABS: Basophils Absolute Auto 0.1 X10*3/uL (0.0-0.2); Basophils Percent Auto 1.4 % (0-2); Eosinophils Absolute Auto 0.3 X10*3/uL (0.0-0.4); Eosinophils Percent Auto 3.9 % (0-4); Hematocrit 39.3 % (37.0-47.0); Hemoglobin 12.7 g/dl (12.0-16.0); Imm Gran Abs Auto 0.03 X10*3/uL (0.00-0.03); Imm Gran Pct Auto 0.4 % (0.0-0.4); Lymphocytes Absolute Auto 3.2 X10*3/uL (1.2-4.9); Lymphocytes Percent Auto 40.3 % (20-40); Mean Corpuscular HGB Conc 32.3 g/dl (31.0-35.0); Mean Corpuscular Hemoglobin 30.4 pg (27.0-33.0); Monocytes Absolute Auto 0.5 X10*3/uL (0.1-1.2); Monocytes Percent Auto 6.1 % (2-11); Neutrophils Absolute Auto 3.8 x10*3/uL (2.0-8.3); Neutrophils Percent Auto 47.9 % (45-73); Platelet Count 418 X10*3/uL (160-400); Red Blood Count 4.18 X10*6/uL (4.20-5.50); Red Cell Distribution Width 12.7 % (11.0-16.0)
[2025-02-07 17:06] LABS: Cholesterol 225 mg/dL (<200); HDL Cholesterol 52 mg/dL (>40); LDL Cholesterol Calculated 150 mg/dL (<100); Triglycerides 119 mg/dL (<150)
[2025-02-07 17:16] LABS: Erythrocyte Sedimentation Rate 10 MM/HR (0-20)
[2025-02-07 17:17] LABS: TSH reflex Free T4 2.55 uIU/mL (0.32-4.0)
[2025-02-10 01:39] LABS: TS Negative Control Passed; TS Panel A 0; TS Panel B 0; TS Positive Control Passed; TSpotTB Negative (Negative)
== END 2025-02-07 13:13 | disposition home or self-care (01) ==
LOC: HO.HHCL 13:12
PROVIDERS: Visit Provider General Practice
DX: R59.0 Localized enlarged lymph nodes (principal); Z13.6 Encounter for screening for cardiovascular disorders
CPT/HCPCS: 36415; 80061; 84443; 85025; 85652; 86481

== ENCOUNTER 2025-02-20 13:33 | Outpatient (REF) | payer MEDICAID, SELFPAY ==
--- NOTE | ~2025-02-20 | MM_ITS ---
EXAMINATION: MM SCREENING DIGITAL BREAST TOMOSYNTHESIS, BILATERAL CLINICAL INFORMATION: Screening. Asymptomatic. COMPARISON: Mammography: Baseline. TECHNIQUE: Digital breast mammography with tomosynthesis is performed in both the craniocaudal and mediolateral oblique views along with computer-aided detection (CAD). FINDINGS: The breasts are heterogeneously dense, which may obscure small masses (ACR BI-RADS breast composition Category c). There are no significant masses, abnormal calcifications, or other abnormalities. MM/MM tomosynthesis screening BI IMPRESSION: No mammographic evidence of malignancy. ASSESSMENT: BI-RADS BI-RADS 1 - Negative RECOMMENDATION: Routine annual mammography screening. 1 year F/U This examination should not preclude the clinical evaluation of a suspicious palpable abnormality. This patient's information was entered into a reminder system with a target due date for their next mammogram. Electronically signed by: Aleena Marshall DO 02/24/2025 05:23 PM EDT
--- OUTSIDE RECORDS SUMMARY | 2025-02-20 16:05 | XMS_ITS | Encounter Summary ---
Author Organization [employer] Address [address] [place] [address] Care Team Providers Care Parking Meter Mechanic Name Role Phone Mera Pacheco MD Primary Care Provider [phone] Encounter Details Date Type Department Care Team ([facility] st Contact Info) Description 10/27/2023 Orders Only [facility] [address] [place] [address] Mera Pacheco MD [address] [place] [address] Social History Tobacco Use Types Packs/Day Years Used Date Smoking Tobacco: Never Passive Smoke Exposure: Never Smokeless Tobacco: Never Alcohol Use Standard Drinks/Week Comments Yes 0 (1 standard drink = 0.6 oz pur e alcohol) oca Housing Stability Answer Date Recorded What is your housing situation today? I have shainaarash cota 07/10/[address] you [...] Answer Date Recorded Patient Health Questionnaire-2 Score 0 09/20/2023 Comments Unknown Sex and Gender Information Value Date Recorded Sex Assigned at Female 07/18/2022 10:33 AM EDT Legal Sex Female 10:33 AM EDT Gender Identity Female 07/18/2022 10:33 AM EDT Sexual Orientation Straight 07/18/2022 10 :33 AM EDT documented as of this encounter Plan of Treatment Upcoming Encounters Date Type Department Care Team (Late st Contact Info) Description 03/18/2025 3:30 PM EDT Office Visit [facility] [address] [place] [address] Jayesh Edwards DDS [address] [place] [address] 03/24/2025 2:00 PM EDT Office Visit [facility] [address] [place] [address] Clint Saravia documented as of this encounter Visit Diagnoses Not on filedocumented in this encounter Care Teams Parking Meter Mechanic Relationship Specialty Start Date End Date Mera Pacheco MD [address] [place] [address] PCP - General Family Medicine 05/30/23 documented as of this encounter
== END 2025-02-20 13:34 | disposition home or self-care (01) ==
LOC: HO.MAMMO 13:33
PROVIDERS: PCP General Practice; Visit Provider General Practice
DX: Z12.31 Encounter for screening mammogram for malignant neoplasm of breast (principal)
CPT/HCPCS: 77063; 77067

== ENCOUNTER → 2025-02-20 14:00 | Outpatient (BNV) | payer MEDICAID, SELFPAY | PROVIDERS: PCP General Practice; Visit Provider Internal Medicine | DX: Z12.31 Encounter for screening mammogram for malignant neoplasm of breast (principal) | CPT/HCPCS: 77063; 77067 ==